=== PATIENT | male | born 1980 | race Hispanic/Latino ===

== ENCOUNTER → 2019-01-11 | Outpatient (CLI) | payer OTHER ==
--- NOTE | 2019-01-11 17:24 | Diagnostic Imaging Report ---
Exam: Left shoulder 2 views Clinical history: Left shoulder pain Findings: There is no evidence of acute fracture or malalignment. Soft tissue calcification is seen superior to the acromioclavicular joint which may be degenerative in nature. The soft tissue is unremarkable. Impression: 1. No radiographic evidence of acute osseous injury. Signed by: Dr. Erik Mittal MD on 01/11/2019 5:21 PM
--- NOTE | 2019-01-11 17:35 | Diagnostic Imaging Report ---
Exam: Right heel 2 views Clinical history: Right heel pain Findings: There is no evidence of acute fracture or malalignment. Osteophytes are noted in the posterior and inferior surface of the calcaneus which may represent plantar fasciitis or Achilles tendinitis. Recommend clinical correlation. Impression: 1. No radiographic evidence of acute osseous injury. Signed by: Dr. Erik Mittal MD on 01/11/2019 5:32 PM
== END ==
LOC: RAD 15:42
PROVIDERS: ATTEND Family Medicine
DX: M79.671 Pain in right foot (principal); M25.512 Pain in left shoulder

== ENCOUNTER 2021-02-02 16:10 | Emergency (ER) | payer OTHER ==
[~2021-02-02] VITALS: Ht 190.5 cm; Wt 124.7 kg
[2021-02-02] MEDS ORDERED: CASIRIVIMAB/IMDEVIMAB 10 ML in SODIUM CHLORIDE 0.9% 100 ML IV ONE (17:00)
== END 2021-02-02 18:08 | disposition home or self-care (01) ==
LOC: ER 16:12
DX: R05 Cough (principal); U07.1 COVID-19
CPT/HCPCS: 99283; J7050